=== PATIENT | male | born 1985 | race Caucasian/White ===

== ENCOUNTER 2017-10-02 18:02 | Emergency (ER) | payer OTHER, SELFPAY ==
[2017-10-02 18:03] VITALS: BP 120/73; PULSE 73; RESP 18; TEMP 37.7; O2SAT 99; BMI 22.4
--- NOTE | 2017-10-02 18:26 | CT_ITS ---
STUDY: CT ABDOMEN AND PELVIS WITHOUT CONTRAST REASON FOR EXAM: Male, 31 years old. Lower abdominal pain on the right RADIATION DOSAGE (If Supplied By Facility): CTDIvol = ( 13.07 ) mGy, DLP = ( 760.47 ) mGycm TECHNIQUE: Transaxial images were obtained from the dome of the diaphragm to the symphysis pubis without oral contrast, and without intravenous contrast. Sagittal and coronal images were reconstructed. Individualized dose optimization techniques were used for this CT. COMPARISON: None. FINDINGS: Minor atelectasis within the dependent portion of the lungs.. The visualized portions of the heart are within normal limits. Normal liver. Gallbladder not visualized consistent with appendectomy Normal spleen. Normal pancreas. Normal bilateral adrenal glands. Normal right kidney. Normal left kidney. Normal visualized stomach. Normal small intestine. Diffuse fecal retention is seen within the colon. Appendix not visualized consistent with appendectomy. Normal abdominal aorta. Normal inferior vena cava. Normal retroperitoneum. Normal urinary bladder. Normal abdominal wall. Normal osseous structures. CT/Abdomen/Pelvis W IV Cont ONLY IMPRESSION: Status post cholecystectomy and appendectomy. No acute abnormalities. Specifically no evidence for appreciable right inguinal hernia at this time Electronically Signed: Franco Saba MD at 20:06 EDT , Service support ,
[2017-10-02] MEDS: 0.9% Normal Saline 1,000 ML 1000 ML IV (18:33)
[2017-10-02 18:46] LABS: Absolute Lymphocyte Count 1.95 X10^3/ul (0.83-4.51); Absolute Neutrophil Count 2.7 X10^3/uL (2.0-7.7); Basophil# 0.02 X10^3/uL; Basophil% 0.4 % (0-1); Eosinophil# 0.19 X10^3/uL; Eosinophils% 3.5 % (0-5); Hemoglobin 14.7 g/dl (13.0-16.5); Lymphocyte # 1.95 X10^3/ul (4.0); Mean Corpuscular Hgb 29.8 pg (27.0-32.0); Mean Platelet Vol. 10.5 fl (6.2-12.0); Monocyte# 0.51 X10^3/uL; Monocyte% 9.4 % (0-10); Neutrophil # 2.74 X10^3/uL (2.7-7.7); Neutrophil % 50.7 % (47-70); POSITIVE COUNT NO; POSITIVE DIFFERENTIAL NO; POSITIVE MORPHOLOGY NO; Platelet Count 181 K/mm3 (150-450); RBC Distribution Width CV 12.8 % (11.6-14.6); RBC Distribution Width SD 39.4 fl (35.1-43.9); Red Blood Count 4.94 M/mm3 (4.6-6.2); White Blood Count 5.4 K/mm3 (4.4-11.0)
[2017-10-02 18:59] LABS: ALB/GLOB Ratio 1.4 RATIO (0.9-2.4); AST(SGOT) 18 U/L (15-37); Alanine Aminotransfer ALT/SGPT 54 U/L (16-61); Albumin, Serum 4.4 g/dL (3.2-5.0); Alkaline Phosphatase 88 U/L (45-117); Anion Gap 4 (5-15); BUN 11 mg/dL (7-18); BUN/Creat Ratio 14.3 RATIO (10-20); Calcium,Total 8.8 mg/dL (8.5-10.1); Chloride 108 mmol/L (98-107); Creatinine, Serum 0.77 mg/dL (0.70-1.30); EST Glomerular Filtration Rate 125 mL/min (>60); Est Glom Filt Rate - Afr Amer 151 mL/min (>60); Estimated Creatinine Clearance 147.15 ml/min; Globulin 3.1 g/dL (2.2-4.2); Glucose 123 mg/dL (74-106); Lipase 231 U/L (73-393); Potassium 3.6 mmol/L (3.5-5.1); Protein, Total 7.5 g/dL (6.4-8.2); Sodium Level 142 mmol/L (136-145)
[2017-10-02 19:01] LABS: Bacteria 0 SEEN /hpf (None Seen); Mucous, Urine 0 SEEN /hpf (<or=2+); Red Blood Cells-Urine 0 SEEN /hpf (0-5); Squamous Epithelial Cells - UA 0 SEEN /hpf (0-5); White Blood Cells 0 SEEN /hpf (0-5)
[2017-10-02 19:05] LABS: Color, Urine Yellow (Yellow); Glucose, Dipstick Normal (Normal); Ketone-Dipstick Negative (Negative); Leukocyte Esterase-Dipstick Negative /ul (Negative); Nitrite-Dipstick Negative (Negative); Occult Blood-Urine 10 /ul (Negative); Protein-Dipstick Negative (Negative); Urine Bilirubin Dipstick Negative (Negative); Urine Clarity Clear (Clear); Urine Urobilinogen Normal (Normal)
--- NOTE | 2017-10-02 20:24 | ED.DCSUM_ITS ---
- ER Visit Summary Date of Service: 10/02/17 Chief Complaint: Abdominal pain History of Present Illness: The patient is a 31 M with right lower quadrant abdominal pain that started about 10 AM today. The pain is in his right lower abdomen into the groin and it radiates to his lower back. Nothing seems to bring this on or make it worse. Nothing has seemed to make it better. The pain does occasionally radiate down into his right testicle. He was concern for hernia. No history of hernia. No GI symptoms like nausea, vomiting, or diarrhea. He does have a history of liver cancer and had a lobectomy in 2004. He is in remission. He has a history of appendectomy and cholecystectomy. No history of kidney stones. No dysuria or hematuria. No fevers. Physical Examination: Afebrile and vital signs unremarkable. Patient is nontoxic and in no acute distress. Heart regular. Lungs clear. Abdomen soft and nontender. exam shows normal inspection and normal palpation. Normal testicular lie. Skin appears normal. Test Results: CBC normal. Glucose 123. Liver panel and lipase normal. Urinalysis unremarkable. CT showed postoperative changes but nothing acute. Emergency Department Course and Treatment: Patient declined pain medicine. He was evaluated, and his workup was unremarkable. He had no new or worsening symptoms. I am not sure what is causing his pain. There is no evidence of GI, , vascular, infectious, or any other pathologies. Patient will be discharged to follow-up with his family doctor. Return for any new or worsening issues. Prior to discharge, the patient was complaining of increased testicular pain. Ultrasound was done and showed a 1.1-1.2 cm epididymal cyst on the right. Moderate left-sided hydrocele. Otherwise unremarkable. Patient will be treated with antibiotics and discharged. Treatment Plan: As above Disposition: Discharged Impression: 1. Right sided epididymal cyst This note was generated with [employer] dictation software. It may contain incorrect words, spelling, and punctuation that were not noted in review of the chart prior to signing ED Disposition - Plan for ED Patient: Chief Complaint: Abd Pain Instructions: ED Abdominal Pain Unkn Cause Male Referrals: Care Physician,No Primary [Primary Care Provider] -
--- NOTE | 2017-10-02 20:24 | ED.DEP ---
ED Disposition - Plan for ED Patient: Chief Complaint: Abd Pain Instructions: Treating Epididymitis and Orchitis Prescriptions: Doxycycline Monohydrate 100 mg PO BID #20 cap Referrals: Mark Joseph DO [STAFF PHYSICIAN] -
--- NOTE | 2017-10-02 20:27 | US_ITS ---
STUDY: SCROTUM ULTRASOUND REASON FOR EXAM: Male, 31 years old. Right scrotal pain TECHNIQUE: Ultrasound evaluation of the scrotum was performed with color Doppler and static floyd-scale imaging. COMPARISON: None. FINDINGS: RIGHT TESTICLE INTRATESTICULAR: There is a normal size of the right testicle. The right testicle measures 5.1 x 3.7 x 2.7 cm. There is a homogenous echotexture. There is normal arterial and normal venous vascularity. There is no demonstrated right testicular mass or cyst. EXTRATESTICULAR: The epididymis is normal in size. The epididymis head measures 2.73 x 1.95 cm. There is normal vascularity of the epididymis. There is a large epididymal cyst. Measuring 1.14 x 1.22 cm There is no demonstrated hydrocele. There is no demonstrated varicocele. There is no demonstrated extratesticular mass or cyst. LEFT TESTICLE INTRATESTICULAR: There is a normal size of the left testicle. The left testicle measures 5.6 x 3.5 x 2.7 cm. There is a homogenous echotexture. There is normal arterial and normal venous vascularity. There is no demonstrated left testicular mass or cyst. EXTRATESTICULAR: The epididymis is normal in size. The epididymis head measures cm. There is normal vascularity of the epididymis. There is no demonstrated epididymal cystic structure. There is moderate-sized hydrocele . There is no demonstrated varicocele. There is no demonstrated extratesticular mass or cyst. US/Testicular with Arterial Flow IMPRESSION: No evidence for testicular mass or torsion. Large right epididymal cyst. Moderate-sized left hydrocele Electronically Signed: Franco Saba MD at 21:22 EDT , Service support ,
[2017-10-02 22:07] VITALS: BP 117/68; PULSE 64; RESP 18; O2SAT 98
[2017-10-02] MEDS: Doxycycline 100 MG CAPSULE PO (22:55)
[2017-10-02] MEDS: Ceftriaxone 500 MG Vial 250 MG IM (23:25)
[2017-10-02 23:48] VITALS: BP 116/76; PULSE 68; RESP 18; O2SAT 97
== END 2017-10-02 23:49 | disposition home or self-care (01) ==
PROVIDERS: Emergency Provider Emergency Medicine
DX: N50.3 Cyst of epididymis (principal); Z90.49 Acquired absence of other specified parts of digestive tract; N43.3 Hydrocele, unspecified
CPT/HCPCS: 74177; 76870; 80053; 81001; 83690; 85025; 93976; 96360; 96372; 99284; J7030; Q9967

== ENCOUNTER 2018-08-13 12:35 | Emergency (ER) | payer OTHER, SELFPAY ==
[2018-08-13 12:36] VITALS: BP 130/87; PULSE 65; RESP 18; TEMP 36.2; O2SAT 99; BMI 22.4
--- NOTE | 2018-08-13 12:46 | EKG12_ITS ---
Test Reason : CP Blood Pressure : / mmHG Vent. Rate : 065 BPM Atrial Rate : 065 BPM P-R Int : 150 ms QRS Dur : 096 ms QT Int : 374 ms P-R-T Axes : 030 061 051 degrees QTc Int : 388 ms Normal sinus rhythm Normal ECG Confirmed by THADDEUS KIM, NEFTALY ([id number]), food editor ZOHREH HERNANDEZ ([id number]) on 08/17/2018 9:21:25 AM Referred By: TL Confirmed By:NEFTALY TRAVIS MD
--- NOTE | 2018-08-13 12:54 | ED.DCSUM_ITS ---
History of Present Illness Chief Complaint: Chest Pain Informant: Patient Onset: Today Narrative: Reports 30 minutes ago vertigo symptoms while cleaning his pain gone. States had transient leg numbness. There is no weakness. [facility] room was spinning. 10 minutes after noted mild chest ache. No radicular symptoms. No dyspnea. No nausea or vomiting. No diaphoresis. Reports mild productive cough today. No fevers. Remote tobacco 3 years ago. No recent sinus infection. No ringing the ears. No visual changes. No headache. No previous similar symptoms in the past. Denies history of hypertension, diabetes, hyperglyceridemia. No family history of MIs young age. No recent travel, surgeries, or immobilizations. No history of PE or DVT. Took a full dose aspirin prior to arrival. Prior similar symptoms: No Past Medical History - Allergies and Home Meds Allergies/Adverse Reactions: Allergies No Known Allergies Allergy (Verified 08/13/18 12:38) Primary Care Physician: Care Physician,No Primary [Primary Care Provider] - Smoking Status: Former smoker Review of Systems General: Denies: Chills, Fever, Sweats Eyes: Denies: Visual changes - bilaterally, Diplopia ENT: Denies: Rhinorrhea, Sore throat Cardiovascular: Reports: Chest pain. Denies: Palpitations Respiratory: Denies: Dyspnea, Cough, Dyspnea on exertion Gastrointestinal: Denies: Abdominal pain, Nausea, Vomiting, Diarrhea, Melena, Hematochezia Genitourinary: Denies: Dysuria, Hematuria, Frequency Musculoskeletal: Denies: Back pain, Extremity Pain Skin: Denies: Rash, Wounds Neurological: Reports: - - Vertigo. Denies: Headache, Weakness, Numbness Physical Exam Vital Signs/Narrative: Vital Signs Temp Pulse Resp BP Pulse Ox 08/13/18 12:36 97.1 F L 65 18 130/87 H 99 Inital Vital Signs reviewed: Yes General: Well nourished, Well developed, No Acute Distress Head: Normocephalic, Atraumatic Eyes: Perrl, EOMI, - - No nystagmus ENT: Moist mucous membranes, No rhinorrhea, TM's clear, Dry mucous membranes Neck: Supple, Nontender Cardiovascular: Regular rate, Regular rhythm, No murmurs Respiratory: No distress, CTA bilaterally, Chest nontender Abdomen: Soft, Nontender, Nondistended, Normal bowel sounds Back: Nontender, Normal Inspection Extremities: Nontender, No edema Skin: Normal color, No rash Neurological: Alert, Oriented x3, Cranial nerves II-XII grossly intact, Normal Strength, Normal Sensation, - - Enfield-Hallpike negative bilaterally. Psychological: Normal affect, Normal Mood Diagnostic/Tx/Re-eval Chest X-Ray - ED: 2 View, Read by Radiologist, Normal Abnormal Lab Results 08/13/18 08/13/18 12:53 12:53 WBC 5.3 RBC 5.05 Hgb 15.1 Hct 41.9 MCV 83.0 MCH 29.9 MCHC 36.0 RDW 12.5 RDW Differential 37.4 Plt Count 194 MPV 10.3 Immature Gran % (Auto) 0.200 Neut % (Auto) 52.8 Lymph % (Auto) 34.4 Dillingham % (Auto) 8.8 Eos % (Auto) 3.6 Baso % (Auto) 0.2 Absolute Neuts (auto) 2.8 Absolute Lymphs (auto) 1.83 Total Counted Not Reportable Sodium 135 L Potassium 3.5 Chloride 103 Carbon Dioxide 29.0 Anion Gap 3 L BUN 8 Creatinine 0.78 Estim Creat Clear Calc 143.93 Est GFR (MDRD) Af Amer 147 Est GFR (MDRD) Non-Af 122 BUN/Creatinine Ratio 10.2 Glucose 93 Calcium 9.0 Troponin I < 0.015 - EKG Initial EKG Interpretation: Sinus Rhythm - Sinus rate of 65, no ST or T wave changes. - Medical Decision Making Patient vitals stable, EKG normal. Presents with vertigo symptoms with no focal neurological deficit. Treated with meclizine. Cardiac work-up initially was negative. Chest x-ray negative. Reevaluation symptoms improving. Discussed heart pathway guideline with the patient with 2% risk. He understands. Shared decision making discussed, he will follow-up with PCP for further testing signs and symptoms discussed return. Prescription for Antivert to use as needed. All questions were answered. Heart score is a 1. PAUL score 0. ED Disposition - Plan for ED Patient: Disposition: Home or Assisted Living Diagnosis: Atypical chest pain, Vertigo Instructions: ED Chest Pain Atypical Unkn Cause, ED Vertigo Unspecified Prescriptions: Meclizine HCl [Antivert] 25 mg PO 4X/DAY PRN PRN #12 tablet PRN Reason: Dizziness Referrals: Care Physician,No Primary [Primary Care Provider] - Additional Instructions: Follow-up with your doctor next 3 to 5 days for reevaluation. Return if any worsening symptoms.
[2018-08-13] MEDS: Meclizine HCl 25 MG Tablet PO (13:02)
[2018-08-13 13:03] LABS: Absolute Lymphocyte Count 1.83 X10^3/ul (0.83-4.51); Absolute Neutrophil Count 2.8 X10^3/uL (2.0-7.7); Basophil# 0.01 X10^3/uL; Basophil% 0.2 % (0-1); Eosinophil# 0.19 X10^3/uL; Eosinophils% 3.6 % (0-5); Hematocrit 41.9 % (40-54); Hemoglobin 15.1 g/dl (13.0-16.5); Lymphocyte # 1.83 X10^3/ul (4.0); Lymphocyte % 34.4 % (19-41); Mean Corpuscular Hgb 29.9 pg (27.0-32.0); Mean Platelet Vol. 10.3 fl (6.2-12.0); Monocyte# 0.47 X10^3/uL; Monocyte% 8.8 % (0-10); Neutrophil # 2.81 X10^3/uL (2.7-7.7); Neutrophil % 52.8 % (47-70); POSITIVE COUNT NO; POSITIVE DIFFERENTIAL NO; POSITIVE MORPHOLOGY NO; Platelet Count 194 K/mm3 (150-450); RBC Distribution Width CV 12.5 % (11.6-14.6); RBC Distribution Width SD 37.4 fl (35.1-43.9); Red Blood Count 5.05 M/mm3 (4.6-6.2); White Blood Count 5.3 K/mm3 (4.4-11.0)
--- NOTE | 2018-08-13 13:08 | RAD_ITS ---
STUDY: X-RAY CHEST REASON FOR EXAM: Male, 32 years old. Chest pain. TECHNIQUE: PA and lateral views of the chest. COMPARISON: None. FINDINGS: EKG electrodes are seen. The lungs are clear and expanded. There is no demonstrated pleural abnormality. Normal size heart. Normal mediastinum and sherley. Normal visualized pulmonary arteries. Normal visualized aortic arch and descending thoracic aorta. Normal visualized thoracic spine. Normal visualized ribs, clavicles, and shoulders. There is no demonstrated abnormality of the visualized soft tissue structures of the upper abdomen. RAD/Chest PA and Lateral IMPRESSION: Normal x-ray examination of the chest. Electronically Signed: Alex Lou, at 13:28 EDT , Service support ,
[2018-08-13 13:19] LABS: Anion Gap 3 (5-15); BUN 8 mg/dL (7-18); BUN/Creat Ratio 10.2 RATIO (10-20); Chloride 103 mmol/L (98-107); Creatinine, Serum 0.78 mg/dL (0.70-1.30); EST Glomerular Filtration Rate 122 mL/min (>60); Est Glom Filt Rate - Afr Amer 147 mL/min (>60); Estimated Creatinine Clearance 143.93 ml/min; Glucose 93 mg/dL (74-106); Potassium 3.5 mmol/L (3.5-5.1); Sodium Level 135 mmol/L (136-145)
[2018-08-13 13:49] VITALS: BP 114/79; PULSE 60; RESP 18; O2SAT 100
== END 2018-08-13 13:50 | disposition home or self-care (01) ==
PROVIDERS: Emergency Provider Emergency Medicine
DX: R07.89 Other chest pain (principal); R42 Dizziness and giddiness; Z87.891 Personal history of nicotine dependence
CPT/HCPCS: 71046; 80048; 84484; 85025; 93005; 99285; A4216

== ENCOUNTER 2022-04-05 20:58 | Emergency (ER) | payer OTHER, SELFPAY ==
[2022-04-05 20:59] VITALS: BP 135/88; PULSE 79; RESP 16; TEMP 36.3; O2SAT 98; BMI 22.4
--- NOTE | 2022-04-05 21:08 | EX.ED.GENINJ ---
HPI History of Present Illness Chief Complaint: Other, Pain/Inj Detail of Chief Complaint: Blunt trauma to the nose Informant: patient Onset/Context/Timing Onset: Hours Mechanism/Context: Blunt Injury Quality of Pain: Throbbing Location: Nose and left maxillary region Current Severity: Mild Maximum Severity: Moderate Worsened by: Initial injury Relieved by: Nothing Associated Symptoms Associated Symptoms: Negative for Parasthesias, Weakness, Loss of function, Inability to ambulate, Loss of consciousness or Amnesia Narrative Narrative: Patient is a 36-year-old male with history of vertigo who presents after sustaining blunt trauma to his nose. He states he was chopping wood. The access bounced back. The handle hit him in the nose. He has obvious deformity to his nose. He did have bleeding. He denies prior injury to his nose. He denies double vision, blurred vision loss of vision. Nuys headache or loss of conscious. Denies malalignment of his teeth. Denies difficulty opening or closing his mouth. He is not on an tight platelet or antiplatelet Tetanus Immunization: Unknown Prior similar symptoms: No Recent Illness/Hospitalization: No PFSH PFSH Medical History no medical history no medical history Home Medications meclizine 25 mg tablet 25 mg PO 4X/DAY PRN PRN Dizziness #12 tabs 08/13/18 [Rx Last Taken Unknown] hydrocodone-acetaminophen 5-325mg 5mg-325mg 1 tab PO Q6H PRN PRN Pain 5 days #20 TABLETS 04/05/22 [Rx Last Taken Unknown] Allergy/AdvReac Type Severity Reaction Status Date / Time No Known Allergies Allergy Verified 04/05/22 21:01 Surgical History no surgical history no surgical history Social History (Updated 04/05/22 @ 21:[address] Nabil Armas MD) household members: spouse Smoking Status: Current every day smoker tobacco type: cigarettes ROS ROS ED Constitutional Constitutional ED: Denies chills, fever(s), subjective, sweats or weight loss Eyes Eyes: Denies blurry vision or change in vision ENT ENT ED: Denies ear pain, rhinorrhea or sore throat Respiratory/Chest Respiratory/Chest: Denies cough or dyspnea Gastrointestinal Gastrointestinal: Denies nausea or vomiting Musculoskeletal Musculoskeletal: Denies neck pain Integumentary Denies Abrasions or rash Neurologic Neurologic: Denies headache(s), paresthesias or weakness Hematologic/Lymphatic Hematologic/Lymphatic: Denies easy bleeding or easy bruising EXAM Physical Exam Const Vital Signs: 04/05/22 20:59 Temperature 97.3 F L Temperature Source Temporal Pulse Rate 79 Respiratory Rate 16 Blood Pressure 135/88 H Blood Pressure Mean 103 Pulse Ox 98 Oxygen Delivery Method Room Air Positive well nourished and well developed Constitutional Narrative: Patient appears uncomfortable has obvious deformity to his nose. General Appearance ED: well developed; Negative for NAD HEENT HEENT Narrative: There is no evidence of injury to the scalp. There is no injury to the ears. His teeth do not appear fractured. There is no trismus. There is no injury to the lips or tongue. There is no hyperesthesia of the infraorbital nerve. trauma; Negative for atraumatic Nose: septum abnormal deviated, hematoma and perforated Eyes PERRL and EOMs intact bilaterally General Eye ED: Yes other Other Details: There is no nystagmus. There is no central diplopia. There is no entrapment. There is no step-off with palpation of the infraorbital rim. Neck full ROM General: Negative for tenderness Resp normal respiratory effort and clear to auscultation bilaterally Cardio regular rhythm Neuro oriented x3, CN's II-XII intact bilaterally and moves all extremities Nelli Coma Scale: document GCS findings Spontaneous Obeys Commands Oriented 15 Sensorium / Orientation: alert Psych mental status grossly normal and thought process normal Skin no rashes or lesions noted, no wounds, skin turgor normal and no jaundice MDM MDM MDM Narrative Medical decision making narrative: Patient with obvious deformity to his nose and evidence of traumatic epistaxis. There is no active bleeding. There is no evidence of a septal hematoma. X-ray was obtained to delineate extent of injury and displacement. Facial films were not obtained since clinically he does not have evidence of an infraorbital fracture. Patient was offered pain medicine. He requested ibuprofen. Per the [employer] CT head rule imaging of the head is not indicated. Per Nexus criteria imaging of the neck is not required. Radiography Diagnostic Testing: Clinical Impression(s) from Imaging Studies Nasal Bones X-Ray 04/05/22 21:25 IMPRESSION: 1. Depressed left nasal bone fracture. 2. Air-fluid levels in the maxillary sinuses bilaterally. Electronically Signed: Jose L Solano MD at 21:36 EST , Three-view x-ray of the nose reveals a depressed fracture. Air-fluid levels are noted in the maxillary sinus. This was independently reviewed and interpreted by me. Discharge Plan Triage Chief Complaint: Other, Pain/Inj ED Provider: Nabil Armas Dx/Rx/DC Orders Clinical Impression: Closed displaced fracture of nasal bone, Epistaxis due to trauma Instructions: ED Nose Fracture, with X-Ray Prescriptions: New hydrocodone-acetaminophen [hydrocodone-acetaminophen] 5-325 mg tablet 1 tab PO Q6H PRN PRN (Reason: Pain) 5 Days Qty: 20 0RF No Action meclizine 25 MG tablet 25 mg PO 4X/DAY PRN PRN (Reason: Dizziness) Qty: 12 0RF Primary Care Provider: Care Physician,No Primary Referrals: Layo Reis MD [Med Staff - Active Staff] - As soon as possible Care Physician,No Primary [Primary Care Provider] - Disposition Disposition: Home, Self Care
[2022-04-05] MEDS: Ibuprofen 600 MG Tablet PO (21:21)
--- NOTE | 2022-04-05 21:25 | RAD_ITS ---
EXAM: XR NASAL BONES, 3 OR MORE VIEWS CLINICAL INDICATION: Deformity TECHNIQUE: Frontal and lateral views of the nasal bones. This report was created using [employer] report generation technology. COMPARISON: None. FINDINGS: BONES/JOINTS: Depressed left nasal bone fracture. No sclerotic or destructive changes observed. SINUSES: Air-fluid levels in the maxillary sinuses bilaterally. SOFT TISSUES: Unremarkable. No soft tissue swelling or gas. No radiopaque foreign body. RAD/Nasal Bones min 3 Views IMPRESSION: 1. Depressed left nasal bone fracture. 2. Air-fluid levels in the maxillary sinuses bilaterally. Electronically Signed: Jose L Solano MD at 21:36 EST ,
== END 2022-04-05 22:48 | disposition home or self-care (01) ==
PROVIDERS: Emergency Provider Emergency Medicine; Visit Provider Emergency Medicine
DX: S02.2XXA Fracture of nasal bones, initial encounter for closed fracture (principal); F17.210 Nicotine dependence, cigarettes, uncomplicated; R04.0 Epistaxis; W22.8XXA Striking against or struck by other objects, initial encounter
CPT/HCPCS: 70160; 99283

== ENCOUNTER → 2022-04-14 | Outpatient (CLI) | payer SELFPAY ==
--- NOTE | 2022-04-14 17:50 | CT_ITS ---
STUDY: CT MAXILLOFACIAL SINUSES REASON FOR EXAM: Male, 36 years old. SINUS RADIATION DOSAGE (If Supplied By Facility): CTDIvol = ( 33.06 ) mGy, DLP = ( 866.91 ) mGycm TECHNIQUE: The patient was scanned in a multi detector CT scanner. High resolution axial imaging was performed without the administration of intravenous contrast material. Sagittal and coronal images were reconstructed. Individualized dose optimization techniques were used for this CT. COMPARISON: None. FINDINGS: FRONTAL SINUSES: Mucosal thickening of the left frontal sinus consistent with chronic sinusitis. ETHMOIDAL SINUSES: Mucosal thickening left ethmoid air cells consistent with chronic sinusitis. MAXILLARY SINUSES: Coastal thickening bilaterally consistent with chronic sinusitis. SPHENOIDAL SINUSES: Normal aeration, without mucosal inflammatory disease. There is patency of the bilateral maxillary infundibuli with normal uncinate processes, ethmoid bullae, and hiatus semilunaris. Normal bilateral middle turbinates. Normal bilateral inferior turbinates. There is a left sided nasal septal deviation with a left sided nasal septal spur. There is patency of the bilateral nasal airways. Acute fractures of both nasal bones including the base of the nasal septum anteriorly. Comminuted fracture of the anterior wall of the left maxilla sinus medially. The visualized bilateral orbital contents are normal. CT/Sinus/Facial Bone IMPRESSION: 1. Chronic left frontal, left ethmoid, bilateral maxillary sinusitis. 2. Patent ostiomeatal units bilaterally. 3. Deviation the inferior aspect of the nasal septum to the left with a bony spur projecting between the left middle and inferior turbinates. 4. Acute fractures of the nasal bones bilaterally including the base of the nasal septum and acute comminuted fracture of the medial aspect of the anterior wall of the left maxillary sinus. Electronically Signed: Adán Hopkins MD at 19:03 EST ,
== END | disposition home or self-care (01) ==
PROVIDERS: Referring Provider Otolaryngology; Visit Provider Otolaryngology
DX: S02.2XXA Fracture of nasal bones, initial encounter for closed fracture (principal)
CPT/HCPCS: 70486